=== PATIENT | female | born 1970 | race Caucasian/White ===

== ENCOUNTER 2019-04-01 07:54 | Day surgery (SDC) | payer BC ==
[~2019-04-01] VITALS: Ht 165.1 cm; Wt 80.7 kg
[2019-04-01] MEDS ORDERED: fentaNYL CITRATE/PF 100 MCG/2 ML AMP IVP PRN ×2 (09:45)
[2019-04-01] MEDS ORDERED: ONDANSETRON HCL 4 MG/2 ML VIAL IVP PRN (09:45)
[2019-04-01] MEDS ORDERED: NS 1000 ML IV.SOLN IV ONE (10:50)
[2019-04-01] MEDS ORDERED: MIDAZOLAM HCL 5 MG/ML VIAL (VERSED) IV ONE (10:50)
[2019-04-01] MEDS ORDERED: LR 1,000 ML IV.SOLN IV ONE (10:50)
[2019-04-01] MEDS ORDERED: SEVOFLURANE 15 MIN GAS INH ONE (10:50)
[2019-04-01] MEDS ORDERED: PROPOFOL 200MG/ 20ML VIAL (DIPRIVAN) IV ONE (10:50)
[2019-04-01] MEDS ORDERED: fentaNYL CITRATE/PF 100 MCG/2 ML AMP ONE (11:16)
[2019-04-01 12:17] VITALS: BP_SYST 112
== END 2019-04-01 13:15 | disposition home or self-care (01) ==
LOC: SMU 07:54 → SDS 07:54
PROVIDERS: ATTEND Obstetrics & Gynecology
DX: N92.0 Excessive and frequent menstruation with regular cycle (principal); M06.9 Rheumatoid arthritis, unspecified; Z88.8 Allergy status to other drugs, medicaments and biological substances; Z98.51 Tubal ligation status; Z82.49 Family history of ischemic heart disease and other diseases of the circulatory system
CPT/HCPCS: 58563; 93005; J2250; J2704; J3010; J7030; J7120